=== PATIENT | female | born 1940 | race Caucasian/White ===

== ENCOUNTER → 2019-07-14 13:03 | Outpatient (CLI) | payer MEDICARE, OTHER, SELFPAY ==
--- NOTE | 2019-07-14 | DI.RAD.S_ITS ---
PROCEDURE: XR LUMBAR SPINE 2-3V INDICATIONS: low back pain TECHNIQUE: 3 views of the lumbar spine were acquired. COMPARISON: None. FINDINGS: Bones: No fracture or focal osseous destruction. Multilevel degenerative endplate sclerosis and spurring. Diffuse facet arthropathy. Grade 1 retrolisthesis of L2 on L3, L3 on L4-2 grade one anterolisthesis of L4 and L5. Dextroscoliosis noted centered at L3. Bilateral sacroiliac sclerosis and partially visualized hip joint degeneration. Soft tissues: Overlying bowel gas pattern is normal. No suspicious soft tissue calcifications. IMPRESSION: Dextroscoliosis. Diffuse lumbar spondylosis and facet arthropathy. Dictated by: Bakari Osborne M.D. on 07/14/2019 at 16:13 Approved by: Bakari Osborne M.D. on 07/14/2019 at 16:15
--- NOTE | 2019-07-14 | DI.RAD.S_ITS ---
PROCEDURE: XR THORACIC SPINE 3V INDICATIONS: BACK PAIN TECHNIQUE: 3 views of the thoracic spine were acquired. COMPARISON: None. FINDINGS: Bones: No fractures or dislocations. No suspicious bony lesions. Diffuse endplate degenerative spurring and sclerosis, and multilevel disc space narrowing. Cervical spondylosis also noted. Mild levocurvature centered at T11. Soft tissues: No paravertebral stripe thickening. IMPRESSION: Diffuse cervical and thoracic spondylosis, and facet arthropathy. No fracture Dictated by: Bakari Osborne M.D. on 07/14/2019 at 15:09 Approved by: Bakari Osborne M.D. on 07/14/2019 at 15:10
== END ==
PROVIDERS: PCP Family Medicine; Referring Provider Family Medicine; Visit Provider Family Medicine
DX: M54.5 Low back pain (principal); M47.812 Spondylosis without myelopathy or radiculopathy, cervical region; M47.814 Spondylosis without myelopathy or radiculopathy, thoracic region
CPT/HCPCS: 72072; 72100

== ENCOUNTER → 2019-07-22 17:53 | Outpatient (CLI) | payer MEDICARE, OTHER, SELFPAY ==
--- NOTE | 2019-07-22 | DI.MRI.S_ITS ---
PROCEDURE: MR LUMBAR SPINE WO CON INDICATIONS: Low back pain TECHNIQUE: Noncontrast sagittal T1 spin echo and T2 fast echo, sagittal STIR, axial T1 and T2 fast spin echo through the lumbar spine. In cases with scoliosis, additional coronal T2 fast spin echo may be performed. COMPARISON: [facility], [place], XR LUMBAR SPINE 2-3V, 07/14/2019, 13:21. FINDINGS: Image quality: Excellent. Alignment and Curvature: There is trace dextroconvex curvature with apex at L3. There is trace retrolisthesis of L2 on L3, L3 on L4, L4 on L5. Bone Marrow: Marrow is of normal overall signal. Moderate reactive endplate changes are present at L2-3, L3-4, minimal L1-L2, L4-5 and L5-S1. No acute vertebral body compression fractures. Spinal Cord: Conus medullaris terminates at the L1-L2 level. Visualized cord demonstrates normal signal and size. Paraspinous Soft Tissues: No paravertebral masses. Discs: Severe desiccation is present from L1-L2 through L4-5, moderate to severe L5-S1. L1-L2: Mild disc bulge with mild spinal stenosis. No foraminal narrowing. Mild facet and ligamentum flavum hypertrophy are present. L2-L3: Mild disc bulge with severe spinal stenosis. Moderate bilateral foraminal narrowing with facet and ligamentum flavum hypertrophy. L3-L4: A mild disc bulge with severe spinal stenosis. Severe bilateral foraminal narrowing, left greater than right with slight flattening of the exiting left L3 nerve root. Prominent ligamentum flavum and facet hypertrophy are present. L4-L5: Mild disc bulge with superimposed posterior central protrusion. There is severe spinal stenosis and near-complete canal compression. Severe right and moderate to severe left foraminal narrowing is present with significant ligamentum flavum and facet hypertrophy. L5-S1: Mild disc bulge with severe spinal stenosis. Severe bilateral foraminal narrowing with facet and ligamentum flavum hypertrophy. Minimal flattening of the nerve roots are present bilaterally. IMPRESSION: 1. Prominent multilevel degenerative changes. 2. Significant multilevel spinal stenosis throughout the lumbar spine secondary to disc bulges with contributing effects of retrolisthesis and facet/ligamentum flavum arthropathy. 3. Prominent multilevel foraminal narrowing severe at L3-4, L4-5 and L5-S1 secondary to facet arthropathy as well as retrolisthesis. Dictated by: Ladan Rodas M.D. on 07/23/2019 at 9:36 Approved by: Ladan Rodas M.D. on 07/23/2019 at 10:02
== END ==
PROVIDERS: PCP Family Medicine; Referring Provider Family Medicine; Visit Provider Family Medicine
DX: M54.5 Low back pain (principal); M47.816 Spondylosis without myelopathy or radiculopathy, lumbar region; M47.817 Spondylosis without myelopathy or radiculopathy, lumbosacral region; M48.061 Spinal stenosis, lumbar region without neurogenic claudication; M48.07 Spinal stenosis, lumbosacral region
CPT/HCPCS: 72148

== ENCOUNTER 2021-08-02 08:31 | Emergency (ER) | payer MEDICARE, OTHER, SELFPAY ==
[2021-08-02] VITALS (14 sets, daily range): BP systolic 141–188; BP diastolic 65–76; PULSE 66–82; RESP 11–29; TEMP 36.2; O2SAT 96–100; BMI 19.0
--- NOTE | 2021-08-02 08:46 | ED.ARRPALP ---
HPI - Arrhythmia/Palpitations General Chief Complaint: Arrhythmia/Palpitations Stated Complaint: pounding heart Time Seen by Provider: 08/02/21 08:31 History of Present Illness HPI narrative: Patient is a 81-year-old female who has history of lung cancer with lobectomy currently only takes spironolactone for dermatology issue presenting today with her palpitations. She apparently has had multiple syncopal episodes over the course of the last month she was admitted [facility] 05/26/2021. She had a CT angio of chest, ct head, blood work at that time, was discharged home. She is scheduled today for Holter monitor with Dr. Mabyr. She says after each syncopal event she has nausea. She says she has no warning signs an just passes out. She has a known left bundle branch block. Today she woke up with pounding of her heart and feeling nauseated, but without syncope. She has not vomited. She says she did pass out a few days ago but not this morning. She has no number pain no abdominal pain no shortness of breath. She does feel little lightheaded and her mouth is dry. Related Data Home Medications Medication Instructions Recorded Confirmed [place] 3 Fish Oil 1 cap PO DAILY PRN 11/26/18 11/26/18 Vitamin D3 25 mcg 1 cap PO DAILY PRN 11/26/18 11/26/18 ascorbate calcium (vitamin C) 500 500 mg PO ONCE PRN tab 11/26/18 11/26/18 mg tablet spironolactone 50 mg tablet See Rx Instructions PO BID tab 11/26/18 11/26/18 Allergies Allergy/AdvReac Type Severity Reaction Status Date / Time Steroids AdvReac Mild Hive and Uncoded 11/26/18 13:54 rash Review of Systems Review of Systems Narrative: GENERAL: Denies chills, fatigue, malaise, fever, sweats, travel HEENT: Denies sinus pain, ear pain, sore throat, difficulty swallowing, neck pain RESPIRATORY: Denies dyspnea, cough, wheezing, hemoptysis, sputum. CARDIOVASCULAR: See HPI GASTROINTESTINAL: Denies nausea, vomiting, abdominal pain, diarrhea, constipation, melena. : Denies dysuria, frequency, incontinence, hematuria, urinary retention, flank pain. MUSCULOSKELETAL: Denies weakness, joint pain, or bony pain SKIN: No rash, no erythema, no pruritus NEUROLOGIC: Denies weakness, dizziness, headache, numbness, change in speech, confusion PSYCHIATRIC: No concerning psychosocial issues. 12 point review of systems is negative except for those stated above and HPI Patient History Medical History Acne Carpal tunnel syndrome (~2013) Chicken pox Measles Mumps Vocal cord disease (~2006) Surgical History Anesthesia History of cataract removal with insertion of prosthetic lens (~2015) History of colonoscopy (~2017) Family History Father Parkinson's disease Mother Dementia Grandfather Pick's disease Grandmother Dementia Grandfather Dementia Social History Smoking Status: Never smoker second hand exposure: No alcohol intake: current (wine occasionally.) substance use type: does not use Smoking Status: Never smoker Exam Initial Vital Signs Initial Vital Signs: Vital Signs Pulse Rate 82 08/02/21 08:36 Respiratory Rate 16 08/02/21 08:36 Pulse Oximetry 96 08/02/21 08:36 GENERAL: Alert 81-year-old femaleand in [no acute] distress. HEENT: Head atraumatic,EOMI, pupils reactive, face symmetric, very dry mucous membranes CARDIOVASCULAR: Regular rate and rhythm without murmurs, rubs or gallops. RESPIRATORY: Breath sounds equal bilaterally, no wheezes rales or rhonchi. ABDOMEN: Soft, nontender. Normoactive bowel sounds all 4 quadrants. No guarding or rebound. EXTREMITIES: Normal range of motion, no clubbing or edema. Neurovascularly intact NEUROLOGICAL: Alert and oriented x4.Normal gait and speech. SKIN: Warm, dry, no laceration, no petechiae, no rashes or lesions. Course Orders Ordered: ED Orders 08/02/21 10:05 CT angio chest PE protocol Stat 08/02/21 10:14 US carotid doppler BI Stat 08/02/21 10:51 Trop I [Troponin I] Stat Discontinued Medications Haloperidol (Haloperidol 5 Mg/Ml Vial) 2 mg IV NOW ONE Stop: 08/02/21 10:13 Last Admin: 08/02/21 10:13 Dose: Not Given Documented by: CHRISTINA Sodium Chloride (Normal Saline 0.9%) 1,000 mls @ 150 mls/hr IV CONT SHAD Last Infusion: 08/02/21 12:39 Dose: 0 mls/hr Documented by: Admin: 08/02/21 10:26 Dose: 150 mls/hr Documented by: MEY Ondansetron HCl (Ondansetron 4 Mg/2 Ml Inj) 4 mg IV NOW ONE Stop: 08/02/21 08:49 Last Admin: 08/02/21 09:02 Dose: 4 mg Documented by: MEY Pantoprazole Sodium (Pantoprazole 40 Mg Vial) 40 mg IV NOW ONE Stop: 08/02/21 10:32 Last Admin: 08/02/21 10:46 Dose: 40 mg Documented by: MEY Vital Signs Vital signs: Vital Signs - 8 hr 08/02/21 11:00 08/02/21 11:20 08/02/21 12:00 Pulse Rate 78 78 77 Respiratory Rate 14 21 12 Blood Pressure 160/68 H 141/65 H 165/70 H Pulse Oximetry 97 97 99 08/02/21 12:30 Pulse Rate 75 Respiratory Rate 22 Blood Pressure 148/68 H Pulse Oximetry 99 MDM - Arrhythmia/Palpitations Lab Data Result diagrams: 08/02/21 08:54 08/02/21 08:54 Labs: Lab Results 08/02/21 08/02/21 08/02/21 Range/Units 08:54 08:54 08:54 WBC 7.9 (4.5-11.0) X10^3/uL RBC 4.45 (4.0-5.2) X10^6/uL Hgb 13.2 (12.0-16.0) g/dL Hct 39.7 (36-46) % MCV 89.2 (80-100) fL MCH 29.6 (26-34) PG MCHC 33.2 (30-36) % RDW 13.3 (11.6-14.8) % Plt Count 259 (150-400) X10^3/uL Neut % (Auto) 78.2 H (50-75) % Lymph % (Auto) 14.0 L (25-40) % [place] % (Auto) 6.1 (3-14) % Eos % (Auto) 0.6 L (2-4) % Baso % (Auto) 1.1 (0-2) % Neut # (Auto) 6200 (6878-6037) /uL Lymph # (Auto) 1100 (7336-7008) /uL [place] # (Auto) 500 (0-900) /uL Eos # (Auto) 0 (0-450) /uL Baso # (Auto) 100 (0-100) /uL PT 11.0 (10.1-12.7) SECONDS INR 1.0 (0.9-1.3) APTT 29 (26.4-36.2) SECONDS D-Dimer 653 H (<230) ng/mL Sodium 138 (137-145) mmol/L Potassium 4.4 (3.4-5.1) mmol/L Chloride 102 (98-107) mmol/L Carbon Dioxide 31 (22-32) mmol/L BUN 32 H (7-17) mg/dL Creatinine 0.81 (0.52-1.04) mg/dL Estimated GFR > 60.0 (>60) mL/min BUN/Creatinine Ratio 39.5 H (6-22) Glucose 115 H (80-110) mg/dL Calcium 9.6 (8.4-10.2) mg/dL Total Bilirubin 0.4 (0.2-1.3) mg/dL AST 33 (14-36) IU/L ALT 28 (<35) IU/L Alkaline Phosphatase 75 (38-126) U/L Total Creatine Kinase 82 (30-135) U/L CK-MB (CK-2) TNP CK-MB (CK-2) Rel Index TNP Troponin I < 0.012 (0.01-0.034) ng/mL Total Protein 7.4 (6.3-8.2) g/dL Albumin 4.5 (3.5-5.0) g/dL Globulin 2.9 (1.7-4.1) g/dL Albumin/Globulin Ratio 1.6 (1.0-2.8) Lipase 70 (23-300) U/L 08/02/21 Range/Units 10:51 WBC (4.5-11.0) X10^3/uL RBC (4.0-5.2) X10^6/uL Hgb (12.0-16.0) g/dL Hct (36-46) % MCV (80-100) fL MCH (26-34) PG MCHC (30-36) % RDW (11.6-14.8) % Plt Count (150-400) X10^3/uL Neut % (Auto) (50-75) % Lymph % (Auto) (25-40) % [place] % (Auto) (3-14) % Eos % (Auto) (2-4) % Baso % (Auto) (0-2) % Neut # (Auto) (3484-9402) /uL Lymph # (Auto) (1080-0070) /uL [place] # (Auto) (0-900) /uL Eos # (Auto) (0-450) /uL Baso # (Auto) (0-100) /uL PT (10.1-12.7) SECONDS INR (0.9-1.3) APTT (26.4-36.2) SECONDS D-Dimer (<230) ng/mL Sodium (137-145) mmol/L Potassium (3.4-5.1) mmol/L Chloride (98-107) mmol/L Carbon Dioxide (22-32) mmol/L BUN (7-17) mg/dL Creatinine (0.52-1.04) mg/dL Estimated GFR (>60) mL/min BUN/Creatinine Ratio (6-22) Glucose (80-110) mg/dL Calcium (8.4-10.2) mg/dL Total Bilirubin (0.2-1.3) mg/dL AST (14-36) IU/L ALT (<35) IU/L Alkaline Phosphatase (38-126) U/L Total Creatine Kinase (30-135) U/L CK-MB (CK-2) CK-MB (CK-2) Rel Index Troponin I < 0.012 (0.01-0.034) ng/mL Total Protein (6.3-8.2) g/dL Albumin (3.5-5.0) g/dL Globulin (1.7-4.1) g/dL Albumin/Globulin Ratio (1.0-2.8) Lipase (23-300) U/L Imaging Data CT scan - chest: [employer]: PROCEDURE:? CT ANGIO CHEST PE PROTOCOL ? INDICATIONS:? passing out, high dimer, hx lung ca ? TECHNIQUE:? After the administration of intravenous contrast, 2 mm thick sections acquired from the pulmonary apices to the posterior costophrenic angles.? 3-dimensional maximum intensity projection (MIP) coronal and sagittal reformats were then acquired through the thorax.? For radiation dose reduction, the following was used:? automated exposure control, adjustment of mA and/or kV according to patient size.? ? COMPARISON:? [facility], [place], [place] CT FUSION SKULL 2 THIGH, 04/14/2020, 15:47. ? FINDINGS:? Image quality:? Excellent.? ? Pulmonary arteries:? Pulmonary arteries are normal in size, and demonstrate no intraluminal filling defects to suggest central pulmonary embolism.? ? Lungs and pleura:? Interval left upper lobectomy.? Ill-defined minimal peripheral patchy densities, right lower lobe, consistent with interval development of infection or inflammation.? Consider possible aspiration.? Calcified granuloma, right lung.? No suspicious pulmonary nodules.? No pleural effusions or pneumothorax.? Central and peripheral airways are patent.? ? Mediastinum:? Heart size is normal, without pericardial effusion.? No mediastinal or hilar adenopathy.? Thoracic aorta is normal in caliber and enhancement.? Esophagus is normal in caliber, without hiatal hernia.? ? Bones and chest wall:? No suspicious bony lesions.? Ribs and thoracic spine appear intact throughout.? Thyroid gland is unremarkable as visualized.? No axillary or supraclavicular adenopathy.? ? Abdomen:? Visualized upper abdominal solid organs appear normal in the early arterial phase of enhancement.? ? IMPRESSION:? ? 1. Interval left upper lobectomy. ? 2. No evidence of acute pulmonary emboli. ? 3. Minimal patchy densities have developed in the periphery of the right lower lobe, possibly representing early pneumonia.? Consider possible aspiration. ? 4. No evidence of metastatic disease in the chest.? ? ? Dictated by: Herman Martin M.D. on 08/02/2021 at 10:37 ? ? Chest x-ray: [employer]: PROCEDURE:? XR CHEST 1V ? INDICATIONS:? palpitations ? TECHNIQUE:? One view of the chest was acquired.? ? COMPARISON:? None. ? FINDINGS:? ? Surgical changes and devices:? None.? ? Lungs and pleura:? There is a small right pleural effusion.? No pulmonary radiopacities.? No pleural pneumothorax. ? Mediastinum:? Mediastinal contours appear normal.? Heart size is normal.? ? Bones and chest wall:? No suspicious bony lesions.? Overlying soft tissues appear unremarkable.? ? IMPRESSION:? Small right pleural effusion. ? ? Carotid Doppler: [employer]: PROCEDURE:? US CAROTID DOPPLER BI ? INDICATIONS:? syncopal episodes ? TECHNIQUE:? Color and pulse Doppler interrogation was performed of both carotid systems, with image documentation and velocity measurements.? ? COMPARISON:? None. ? FINDINGS:? Stenosis calculations are based on SRU (Society of Radiologists in Ultrasound) criteria.? ? ? Right side:? Brachial blood pressure:? 160/68 mm Hg.? Common carotid artery peak systolic velocity:? 98 cm/sec.? Internal carotid artery peak systolic velocity:? 91 cm/sec.? Internal carotid artery end diastolic velocity:? 23 cm/sec.? External carotid artery peak systolic velocity:? 89 cm/sec.? ICA/CCA peak systolic ratio:? 0.93 .? Gibbs scale imaging description:? Mild atheromatous plaque at the carotid bifurcation Percent internal carotid artery stenosis:? Less than 50% stenosis .? Vertebral artery:? Flow direction is antegrade.? ? Left side:? Brachial blood pressure:? 141/65 mm Hg. Common carotid artery peak systolic velocity:? 98 cm/sec.? Internal carotid artery peak systolic velocity:? 76 cm/sec.? Internal carotid artery end diastolic velocity:? 20 cm/sec.? External carotid artery peak systolic velocity:? 95 cm/sec.? ICA/CCA peak systolic ratio:? 0.78 .? Gibbs scale imaging description:? Mild atheromatous plaque at the carotid bifurcation Percent internal carotid artery stenosis:? Less than 50% stenosis . Vertebral artery:? Flow direction is antegrade.? ? ? IMPRESSION:? Less than 50% stenosis of the bilateral internal carotid arteries. ? ? Dictated by: Angeles Page M.D. on 08/02/2021 at 12:27 ?? ECG Data Interpretation: Sinus rhythm rate 78 p.r. interval [address] changes left bundle-branch block noted and similar to prior. MDM Narrative Medical decision making narrative: Patient is on a monitor she has 2- troponins. PE study is negative. I received records from her most recent admission to [facility] on July 24 to . Acid did a carotid Doppler today emergency department no causes for her syncopal episodes. She actually did not have a syncopal episode today only heart palpitations. Today her workup is negative she is scheduled for Holter monitor in just a few hours. 12:47 Dr. Bajwa, cardiology had [employer] has been updated patient's symptoms test results agrees with outpatient Holter monitor today as scheduled. No further recommendations. I have discussed with patient return to the emergency department if she should have any worsening or new symptoms. Discharge Plan Departure Patient Disposition: Home Clinical Impression: Heart palpitations Instructions: DI for Arrhythmias Activity Restrictions/Additional Instructions: *You have been diagnosed with palpitations *What to do: Please see cardiology today for a Holter monitor. Please follow-up with her primary care provider in regards further workup of passing out and palpitations. *Continue to take medications as directed *Follow up with your primary care provider in 2-3 days or call [phone] *Return to ER if you should have recurrent episode of passing out palpitations dizziness lightheadedness chest pain shortness of breath or any new, worsening or concerning symptoms Prescriptions: No Action ascorbate calcium (vitamin C) 500 mg tablet 500 mg PO ONCE PRN0RF [place] 3 Fish Oil 1 cap PO DAILY PRN0RF spironolactone 50 mg tablet See Rx Instructions PO BID 0RF Label Comments: 1 tab PO in the morning and 1/2 tab at night. Rx Instructions: 1 tab PO in the morning and 1/2 tab at night. Vitamin D3 25 mcg 1 cap PO DAILY PRN0RF Referrals: Efren Rubio MD [Primary Care Provider] - Meliton Pereyra MD [Non-Staff] -
--- NOTE | 2021-08-02 08:49 | DI.RAD.S_ITS ---
PROCEDURE: XR CHEST 1V INDICATIONS: palpitations TECHNIQUE: One view of the chest was acquired. COMPARISON: None. FINDINGS: Surgical changes and devices: None. Lungs and pleura: There is a small right pleural effusion. No pulmonary radiopacities. No pleural pneumothorax. Mediastinum: Mediastinal contours appear normal. Heart size is normal. Bones and chest wall: No suspicious bony lesions. Overlying soft tissues appear unremarkable. IMPRESSION: Small right pleural effusion. Dictated by: Angeles Page M.D. on 08/02/2021 at 9:17 Approved by: Angeles Page M.D. on 08/02/2021 at 9:21
[2021-08-02] MEDS: ONDANSETRON 4 MG/2 ML INJ IV (09:02)
[2021-08-02 09:15] LABS: Add Manual Diff / Slide Review NO; Basophils Absolute Auto 100 /uL (0-100); Basophils Percent Auto 1.1 % (0-2); Eosinophils Absolute Auto 0 /uL (0-450); Eosinophils Percent Auto 0.6 % (2-4); Hematocrit 39.7 % (36-46); Hemoglobin 13.2 g/dL (12.0-16.0); Lymphocytes Absolute Auto 1100 /uL (1100-4500); Mean Corpuscular HGB Conc 33.2 % (30-36); Mean Corpuscular Hemoglobin 29.6 PG (26-34); Mean Corpuscular Volume 89.2 fL (80-100); Monocytes Absolute Auto 500 /uL (0-900); Monocytes Percent Auto 6.1 % (3-14); Neutrophils Absolute Auto 6200 /uL (1500-7000); Neutrophils Percent Auto 78.2 % (50-75); PTT Partial Thromboplastin Tim 29 SECONDS (26.4-36.2); Platelet Count 259 X10^3/uL (150-400); Red Blood Cell Count 4.45 X10^6/uL (4.0-5.2); Red Cell Distribution Width 13.3 % (11.6-14.8); White Blood Cell Count 7.9 X10^3/uL (4.5-11.0)
[2021-08-02 09:21] LABS: Alanine Aminotransferase 28 IU/L (<35); Albumin 4.5 g/dL (3.5-5.0); Albumin Globulin Ratio 1.6 (1.0-2.8); Alkaline Phosphatase 75 U/L (38-126); Aspartate Aminotransferase 33 IU/L (14-36); BUN Creatinine Ratio 39.5 (6-22); Bilirubin Total 0.4 mg/dL (0.2-1.3); Blood Urea Nitrogen 32 mg/dL (7-17); Calcium 9.6 mg/dL (8.4-10.2); Carbon Dioxide 31 mmol/L (22-32); Chloride 102 mmol/L (98-107); Creatine Kinase 82 U/L (30-135); Estimated Glomerular Filt Rate > 60.0 mL/min (>60); Globulin 2.9 g/dL (1.7-4.1); Glucose 115 mg/dL (80-110); HEMOLYSIS 16 (0-50); Lipase 70 U/L (23-300); Potassium 4.4 mmol/L (3.4-5.1); Sodium 138 mmol/L (137-145); Total Protein 7.4 g/dL (6.3-8.2)
[2021-08-02 09:32] LABS: Troponin I < 0.012 ng/mL (0.01-0.034)
[2021-08-02 09:33] LABS: D Dimer 653 ng/mL (<230)
--- NOTE | 2021-08-02 10:05 | DI.CT.S_ITS ---
PROCEDURE: CT ANGIO CHEST PE PROTOCOL INDICATIONS: passing out, high dimer, hx lung ca TECHNIQUE: After the administration of intravenous contrast, 2 mm thick sections acquired from the pulmonary apices to the posterior costophrenic angles. 3-dimensional maximum intensity projection (MIP) coronal and sagittal reformats were then acquired through the thorax. For radiation dose reduction, the following was used: automated exposure control, adjustment of mA and/or kV according to patient size. COMPARISON: [place], [place], [place] PET CT FUSION SKULL 2 THIGH, 04/14/2020, 15:47. FINDINGS: Image quality: Excellent. Pulmonary arteries: Pulmonary arteries are normal in size, and demonstrate no intraluminal filling defects to suggest central pulmonary embolism. Lungs and pleura: Interval left upper lobectomy. Ill-defined minimal peripheral patchy densities, right lower lobe, consistent with interval development of infection or inflammation. Consider possible aspiration. Calcified granuloma, right lung. No suspicious pulmonary nodules. No pleural effusions or pneumothorax. Central and peripheral airways are patent. Mediastinum: Heart size is normal, without pericardial effusion. No mediastinal or hilar adenopathy. Thoracic aorta is normal in caliber and enhancement. Esophagus is normal in caliber, without hiatal hernia. Bones and chest wall: No suspicious bony lesions. Ribs and thoracic spine appear intact throughout. Thyroid gland is unremarkable as visualized. No axillary or supraclavicular adenopathy. Abdomen: Visualized upper abdominal solid organs appear normal in the early arterial phase of enhancement. IMPRESSION: 1. Interval left upper lobectomy. 2. No evidence of acute pulmonary emboli. 3. Minimal patchy densities have developed in the periphery of the right lower lobe, possibly representing early pneumonia. Consider possible aspiration. 4. No evidence of metastatic disease in the chest. Dictated by: Herman Martin M.D. on 08/02/2021 at 10:37 Approved by: Herman Martin M.D. on 08/02/2021 at 10:45
--- NOTE | 2021-08-02 10:14 | DI.US.S_ITS ---
PROCEDURE: US CAROTID DOPPLER BI INDICATIONS: syncopal episodes TECHNIQUE: Color and pulse Doppler interrogation was performed of both carotid systems, with image documentation and velocity measurements. COMPARISON: None. FINDINGS: Stenosis calculations are based on SRU (Society of Radiologists in Ultrasound) criteria. Right side: Brachial blood pressure: 160/68 mm Hg. Common carotid artery peak systolic velocity: 98 cm/sec. Internal carotid artery peak systolic velocity: 91 cm/sec. Internal carotid artery end diastolic velocity: 23 cm/sec. External carotid artery peak systolic velocity: 89 cm/sec. ICA/CCA peak systolic ratio: 0.93 . Gibbs scale imaging description: Mild atheromatous plaque at the carotid bifurcation Percent internal carotid artery stenosis: Less than 50% stenosis . Vertebral artery: Flow direction is antegrade. Left side: Brachial blood pressure: 141/65 mm Hg. Common carotid artery peak systolic velocity: 98 cm/sec. Internal carotid artery peak systolic velocity: 76 cm/sec. Internal carotid artery end diastolic velocity: 20 cm/sec. External carotid artery peak systolic velocity: 95 cm/sec. ICA/CCA peak systolic ratio: 0.78 . Gibbs scale imaging description: Mild atheromatous plaque at the carotid bifurcation Percent internal carotid artery stenosis: Less than 50% stenosis . Vertebral artery: Flow direction is antegrade. IMPRESSION: Less than 50% stenosis of the bilateral internal carotid arteries. Dictated by: Angeles Page M.D. on 08/02/2021 at 12:27 Approved by: Angeles Page M.D. on 08/02/2021 at 12:28
[2021-08-02] MEDS: SODIUM CHLORIDE 0.9% 1,000 ML 150 ML IV (10:26)
[2021-08-02] MEDS: PANTOPRAZOLE 40 MG VIAL IV (10:46)
[2021-08-02 11:33] LABS: Troponin I < 0.012 ng/mL (0.01-0.034)
== END 2021-08-02 12:50 | disposition home or self-care (01) ==
PROVIDERS: Emergency Provider Emergency Medicine; PCP Family Medicine
DX: R00.2 Palpitations (principal)
CPT/HCPCS: 36415; 71045; 71275; 80053; 82550; 83690; 84484; 85025; 85379; 85610; 85730; 93005; 93880; 96361; 96374; 96375; 99284; C9113; J2405

== ENCOUNTER → 2021-09-06 08:54 | Outpatient (CLI) | payer MEDICARE, OTHER, SELFPAY ==
--- NOTE | 2021-09-06 | DI.CT.S_ITS ---
PROCEDURE: CT CHEST ABDOMEN WO CON INDICATIONS: Pneumonia, unspecified organism TECHNIQUE: After the administration of oral contrast, 5 mm thick sections acquired from the pulmonary apices to the iliac crests. 5 mm thick coronal and sagittal reformats acquired, with additional 7 mm coronal MIP reformats through the lungs. For radiation dose reduction, the following was used: automated exposure control, adjustment of mA and/or kV according to patient size. COMPARISON: , CT, CT ANGIO CHEST PE PROTOCOL, 08/02/2021, 10:10. , [place], [place] PET CT FUSION SKULL 2 THIGH, 04/14/2020, 15:47. FINDINGS: Image quality: Excellent. CHEST: Lungs and pleura: Interval resolution of subtle multifocal opacities in the right lower lobe, consistent with resolution of inflammation or pneumonia. Again noted is a calcified granuloma in the right lower lobe. There is also a 3 x 5 mm pulmonary nodule in the right upper lobe, which is unchanged, not commented on on the previous study. There is a 4 mm pulmonary nodule in a subpleural location of the right lower lobe, which occurred in a area of previous inflammation, and therefore was not previously commented on. This is stable as well. Reference current image 81/3. No pleural effusions or pneumothorax. Central and peripheral airways are patent and normal in caliber. Mediastinum: Heart size is normal. No pericardial effusion. No mediastinal adenopathy by size criteria. Thoracic aorta and central pulmonary arteries are normal in size. Esophagus is normal in caliber. No hiatal hernia. Chest wall: No axillary or supraclavicular adenopathy by size criteria. Thyroid gland is unremarkable as visualized. . ABDOMEN: Solid organs: Liver is normal in size. Vague low-density lesion in the segment 4 B of left lobe of the liver measuring 2.6 cm in transverse diameter. Reference image 64/2 and 9/4. Gallbladder may be surgically absent . Pancreas is normal in contours. Spleen is normal in size. No adrenal nodules. Both kidneys are normal in size, without hydronephrosis or nephrolithiasis. Peritoneum and bowel: Small and large bowel loops are normal in caliber and wall thickness. No free fluid or air. Nodes and vessels: No retroperitoneal or mesenteric adenopathy by size criteria. Aorta and inferior vena cava are normal in caliber. Miscellaneous: No ventral hernias. Bones: Lumbar degenerative change. No lytic or blastic bony lesions. No compression fractures. Multilevel lumbar canal stenosis. IMPRESSION: 1. Remote left upper lobectomy. 2. Resolution of subtle multifocal right lung densities consistent with resolution of pneumonia. 3. Low-density lesion in the segment 4 B of the liver. Consider possible metastatic disease. 4. Chronic granulomatous disease. 5. There are 2 noncalcified pulmonary nodules in the right lung, not significantly changed from the most recent prior study. These can be re-evaluated for stability on follow-up imaging studies. Comment: Recommend multiphase liver CT or MRI to evaluate the segment 4 B liver lesion. Dictated by: Herman Martin M.D. on 09/06/2021 at 9:45 Approved by: Herman aMrtin M.D. on 09/06/2021 at 10:21
== END ==
PROVIDERS: PCP Family Medicine; Referring Provider Family Medicine; Visit Provider Family Medicine
DX: J18.9 Pneumonia, unspecified organism (principal); R91.8 Other nonspecific abnormal finding of lung field; K76.9 Liver disease, unspecified
CPT/HCPCS: 71250; 74150

== ENCOUNTER → 2021-09-08 09:55 | Outpatient (CLI) | payer MEDICARE, OTHER, SELFPAY ==
[2021-09-08 10:48] LABS: BUN Creatinine Ratio 23.3 (6-22); Blood Urea Nitrogen 21 mg/dL (7-17); Calcium 9.6 mg/dL (8.4-10.2); Carbon Dioxide 31 mmol/L (22-32); Chloride 103 mmol/L (98-107); Estimated Glomerular Filt Rate > 60.0 mL/min (>60); Glucose 95 mg/dL (80-110); HEMOLYSIS < 15 (0-50); Sodium 139 mmol/L (137-145)
== END ==
PROVIDERS: PCP Family Medicine; Referring Provider Family Medicine; Visit Provider Family Medicine
DX: R93.2 Abnormal findings on diagnostic imaging of liver and biliary tract (principal)
CPT/HCPCS: 36415; 80048

== ENCOUNTER → 2021-09-09 10:38 | Outpatient (CLI) | payer MEDICARE, OTHER, SELFPAY ==
--- NOTE | 2021-09-09 10:43 | DI.CT.S_ITS ---
PROCEDURE: CT ABDOMEN WO/W CON INDICATIONS: FOLLOW UP PRIOR CT 09/06/21 TECHNIQUE: 4 phase scanning was performed. Non-contrast 5 mm axial sections acquired from the diaphragm to the iliac crests. Following the administration of intravenous contrast, 5 mm thick arterial-phase, portal venous-phase, and 5-minute delayed phase images were acquired through the liver. 5 mm thick coronal and sagittal reformats were performed. For radiation dose reduction, the following was used: automated exposure control, adjustment of mA and/or kV according to patient size. COMPARISON: [facility], [place], [place] PET CT FUSION SKULL 2 THIGH, 04/14/2020, 15:47. [facility], CT, CT CHEST ABDOMEN WO CON, 09/06/2021, 9:06. FINDINGS: Image quality: Excellent. Lung bases: Lung bases are clear. Heart size is normal. Liver: A 2.5 x 1.5 cm hypoenhancing lesion is seen in segment 4B (20/2), which demonstrates nodular foci of arterial hyperenhancement with progressive filling on more delayed phases. Initial nodular enhancement appears to be central rather than peripheral. Subtle hypodensity is seen in this location on prior PET-CT from 04/14/2020, which his stable in size without associated hypermetabolic activity. No additional focal liver lesion is seen. Other solid organs: Gallbladder is unremarkable. Biliary system is non dilated. Pancreas is normal in morphology. Spleen is normal in size and enhancement. No adrenal nodules. Both kidneys demonstrate normal size and enhancement, without hydronephrosis or nephrolithiasis. Simple appearing left renal cysts are noted. Nodes and vessels: No retroperitoneal or mesenteric adenopathy by size criteria. Aorta and inferior vena cava are normal in size. Bowel and peritoneum: Unenhanced bowel loops are normal in caliber. No free fluid or air. Bones: No suspicious bony lesions. No vertebral body compression fractures. Multilevel degenerative changes in the spine. Mild dextroconvex curvature. Miscellaneous: No ventral hernias. IMPRESSION: Hypoattenuating lesion in segment 4B of the liver demonstrates central nodular arterial hyperenhancement with progressive filling on more delayed phases, not significantly changed in size when compared to the PET-CT from 04/14/2020. This finding is favored to represent an atypical benign hemangioma rather than metastatic disease. However, recommend follow-up exam in approximately 6 months to demonstrate stability. Follow-up could be performed with liver protocol MRI for additional diagnostic information. Dictated by: Quintin Vides M.D. on 09/09/2021 at 12:18 Approved by: Quintin Vides M.D. on 09/09/2021 at 12:33
== END ==
PROVIDERS: PCP Family Medicine; Referring Provider Family Medicine; Visit Provider Family Medicine
DX: R93.2 Abnormal findings on diagnostic imaging of liver and biliary tract (principal); K76.9 Liver disease, unspecified
CPT/HCPCS: 74170

== ENCOUNTER → 2022-10-05 14:47 | Outpatient (CLI) | payer MEDICARE, OTHER, SELFPAY ==
--- NOTE | 2022-10-05 | DI.US.S_ITS ---
PROCEDURE: US THYROID INDICATIONS: THYROTOXICOSIS TECHNIQUE: Real-time scanning was performed of the thyroid gland, with image documentation. COMPARISON: None. FINDINGS: Right: Thyroid lobe measures 3.1 x 1.0 x 1.3 cm, and is homogeneous in echotexture. Left: Thyroid lobe measures 0.9 x 0.7 x 1.3 cm, and is homogenous in echotexture. Isthmus: 2 mm thick. Nodule number: 1 Location: Left lateral Size: 0.6 x 0.3 x 0.5 cm. Composition: Cystic Echogenicity: Anechoic Shape: wider than tall. Margins: Smooth Echogenic foci: Non Total points: 0 ACR TI-RADS category: 1 Nodule number: 2 Location: Right lateral Size: 0.6 x 0.3 x 0.5 cm. Composition: Predominantly solid Echogenicity: Hypoechoic Shape: wider than tall. Margins: Smooth Echogenic foci: None Total points: For ACR TI-RADS category: 4 Nodule number: 3 Location: Right superior Size: 0.4 x 0.3 x 0.4 cm. Composition: Predominantly solid Echogenicity: Hypoechoic Shape: wider than tall. Margins: Smooth Echogenic foci: None Total points: For ACR TI-RADS category: 4 IMPRESSION: Small subcentimeter thyroid nodules. Best practice guidelines suggest no follow-up is necessary ACR TI-RADS definitions and recommendations: TI-RADS 1 (benign): 0 points. FNA not needed. TI-RADS 2 (not suspicious): 2 points. FNA not needed. TI-RADS 3 (mildly suspicious): 3 points. * FNA if 2.5 cm or larger, follow up if 1.5 cm or larger (at 1, 3, and 5 years). TI-RADS 4 (moderately suspicious): 4-6 points. * FNA if 1.5 cm or larger, follow up if 1 cm or larger (at 1, 2, 3, and 5 years). TI-RADS 5 (highly suspicious): 7 points or more. * FNA if 1 cm or larger, follow up if 0.5 cm or larger (every year for 5 years). Approved by: Phil Alvarado M.D. on 10/05/2022 at 18:02
== END ==
PROVIDERS: PCP Family Medicine; Referring Provider Family Medicine; Visit Provider Family Medicine
DX: E05.90 Thyrotoxicosis, unspecified without thyrotoxic crisis or storm (principal); E04.2 Nontoxic multinodular goiter
CPT/HCPCS: 76536